=== PATIENT | female | born 1985 | race Two or more races ===

== ENCOUNTER → 2016-09-24 | Outpatient (REF) | payer OTHER ==
[~2016-09-24] MED LIST: /MOXI40TA PO; ACET50TA PO; ALBU1.25 INH; AMOX875T; ARTISOL10; CALCTAB22; CETI10TA PO; EXCETAB; IBUP200C PO; IBUP80TA PO; IPRA2IN INH; PERCOCET PO; PRED10TA2; PRED5TAB; PRENATAL VITAMIN; PROPYLTHIOURACIL; VALT500T; WOMETAB9 PO; [UNRECOGNIZED DRUG - CODE] PO; [UNRECOGNIZED DRUG - REMARK]; prenatal vitamin PO
== END ==
LOC: M LAB REF 10:04
PROVIDERS: ATTEND Physician Assistant
DX: J02.9 Acute pharyngitis, unspecified (principal)

== ENCOUNTER → 2017-08-14 | Outpatient (CLI) | payer OTHER | LOC: M ADAMS 13:13 | DX: M79.645 Pain in left finger(s) (principal) | CPT/HCPCS: 73140 ==

== ENCOUNTER → 2017-10-23 | Outpatient (REF) | payer OTHER ==
[2017-10-23 12:44] LABS: BASO % 0.5 % (0.0-1.0); EOS # 0.2 10^3/uL (0.0-0.50); EOS % 3.1 % (0.0-3.0); HEMATOCRIT 37.9 % (36.0-47.0); HEMOGLOBIN 12.9 g/dl (12.0-15.5); IMMATURE GRANULOCYTE % 0.3 % (0-3.0); LYMPH # 1.3 10^3/uL (1.5-6.5); LYMPH % 21.3 % (24.0-44.0); MEAN CORPUSCULAR HEMOGLOBIN 29.7 pg (27.0-33.0); MEAN CORPUSCULAR VOLUME 87.1 fl (80.0-96.0); MONO # 0.3 10^3/uL (0.0-0.8); MONO % 5.6 % (0.0-5.0); NEUTROPHILS # 4.2 10^3/uL (1.8-7.7); NEUTROPHILS % 69.2 % (36.0-66.0); PLATELET COUNT, AUTOMATED 220 10^3/uL (150-450); RED BLOOD COUNT 4.35 10^6/uL (4.00-5.40); RED CELL DISTRIBUTION WIDTH 12.9 % (11.5-14.5); WHITE BLOOD COUNT 6.1 10^3/uL (4.0-10.0)
[2017-10-23 13:25] LABS: ALBUMIN 3.8 GM/DL (3.2-5.2); ALBUMIN/GLOBULIN RATIO 1.03 (1.00-1.93); ALKALINE PHOSPHATASE 60 U/L (45-117); ALT/SGPT 26 U/L (12-78); ANION GAP 7 MEQ/L (8-16); AST/SGOT 13 U/L (7-37); BILIRUBIN,TOTAL 0.4 MG/DL (0.2-1.0); BLOOD UREA NITROGEN 12 MG/DL (7-18); CALCIUM LEVEL 8.5 MG/DL (8.5-10.1); CARBON DIOXIDE LEVEL 27 MEQ/L (21-32); CHLORIDE LEVEL 108 MEQ/L (98-107); CHOLESTEROL LEVEL 178 MG/DL (<200); CHOLESTEROL RISK RATIO 5.393 (<5); CREATININE FOR GFR 0.57 MG/DL (0.55-1.30); FREE T4 0.88 NG/DL (0.76-1.46); GLOMERULAR FILTRATION RATE > 60.0 (>60); GLUCOSE, FASTING 98 MG/DL (70-100); HDL CHOLESTEROL 33 MG/DL (>40); LDL CHOLESTEROL 108.6 MG/DL (<100); NON-HDL-C 145 MG/DL; SODIUM LEVEL 142 MEQ/L (136-145); TOTAL PROTEIN 7.5 GM/DL (6.4-8.2); TRIGLYCERIDES LEVEL 182 MG/DL (<150)
[2017-10-23 13:43] LABS: TOTAL 25(OH) VITAMIN D 14.1 NG/ML (30.0-100.0)
== END ==
LOC: M SFHCADAM 09:05
DX: E66.01 Morbid (severe) obesity due to excess calories (principal)

== ENCOUNTER → 2018-06-13 | Outpatient (REF) | payer OTHER ==
[~2018-06-13] MED LIST changes: +MAPA500T2 PO
[2018-06-13 13:05] LABS: HIV 1&2 SCREEN CENTAUR NEGATIVE (NEGATIVE)
[2018-06-13 13:42] LABS: CHLAMYDIA DNA AMPLIFICATION NEGATIVE (NEGATIVE); GC DNA AMPLIFICATION NEGATIVE (NEGATIVE)
[2018-06-15 14:22] LABS: HPV HYBRID CAPTURE II Negative (Negative)
== END ==
LOC: M SFHCWAGY 09:16
PROVIDERS: ATTEND Nurse Practitioner Women's Health
DX: Z12.4 Encounter for screening for malignant neoplasm of cervix (principal); Z11.3 Encounter for screening for infections with a predominantly sexual mode of transmission; Z11.4 Encounter for screening for human immunodeficiency virus [HIV]; Z11.51 Encounter for screening for human papillomavirus (HPV)

== ENCOUNTER → 2019-04-16 | Outpatient (REF) | payer OTHER ==
[~2019-04-16] MED LIST changes: -/MOXI40TA PO; -ACET50TA PO; +AVEL1TAB2 PO; +MAPA500T17 PO; +OXYC1TAB23 PO; -PERCOCET PO
== END ==
LOC: M SFHCADAM 10:43
PROVIDERS: ATTEND Physician Assistant Medical
DX: E55.9 Vitamin D deficiency, unspecified (principal)

== ENCOUNTER → 2020-04-01 | Outpatient (REF) | payer OTHER ==
[2020-04-01 14:21] LABS: TOTAL 25(OH) VITAMIN D 16.2 NG/ML (30.0-100.0)
[2020-04-02 15:08] LABS: HEPATITIS B CORE ANTIBODY IGG Negative (Negative); HERPES ZOSTER, VARICELLA IgG 2235 index (Immune >165)
== END ==
LOC: M SFHCADAM 11:02
PROVIDERS: ATTEND Physician Assistant Medical
DX: E55.9 Vitamin D deficiency, unspecified (principal); Z20.828 Contact with and (suspected) exposure to other viral communicable diseases

== ENCOUNTER → 2022-10-12 | Outpatient (REF) | payer OTHER ==
[2022-10-14 17:15] LABS: URINE PREG TEST NEGATIVE (NEGATIVE)
== END ==
LOC: M LAB REF 16:20
PROVIDERS: ATTEND Pediatrics
DX: N92.6 Irregular menstruation, unspecified (principal)

== ENCOUNTER → 2022-10-21 | Outpatient (REF) | payer OTHER ==
[2022-10-21 14:39] LABS: BASO % 0.4 % (0.0-1.0); EOS # 0.3 10^3/uL (0.0-0.5); EOS % 3.2 % (0.0-3.0); HEMATOCRIT 39.6 % (36.0-47.0); HEMOGLOBIN 12.9 g/dl (12.0-15.5); LYMPH % 24.5 % (24.0-44.0); MEAN CORPUSCULAR HEMOGLOBIN 29.5 pg (27.0-33.0); MEAN CORPUSCULAR HGB CONC 32.6 g/dl (32.0-36.5); MEAN CORPUSCULAR VOLUME 90.4 fl (80.0-96.0); MONO # 0.5 10^3/uL (0.0-0.8); MONO % 5.7 % (2.0-8.0); NEUTROPHILS # 5.4 10^3/uL (1.5-8.5); NEUTROPHILS % 64.6 % (36.0-66.0); PLATELET COUNT, AUTOMATED 279 10^3/uL (150-450); RED BLOOD COUNT 4.38 10^6/uL (4.00-5.40); WHITE BLOOD COUNT 8.3 10^3/uL (4.0-10.0)
[2022-10-21 15:04] LABS: HEMOGLOBIN A1c 5.4 % (4.0-6.0)
[2022-10-21 15:06] LABS: CHOLESTEROL RISK RATIO 5.81 (<5); FOLLICLE STIMULATING HORMONE 3.5 mIU/ML; HDL CHOLESTEROL 27.7 MG/DL (>40); LDL CHOLESTEROL 94.7 MG/DL (<100); LUTEINIZING HORMONE 3.3 mIU/ML; NON-HDL-C 133.3 MG/DL; THYROID STIMULATING HORMONE 2.031 uIU/ML (0.55-4.78)
== END ==
LOC: M LAB REF 12:53
PROVIDERS: ATTEND Pediatrics
DX: N92.6 Irregular menstruation, unspecified (principal); E78.5 Hyperlipidemia, unspecified; R73.03 Prediabetes; N92.0 Excessive and frequent menstruation with regular cycle

== ENCOUNTER → 2023-12-15 | Outpatient (REF) | payer OTHER ==
[2023-12-15 13:53] LABS: HEMOGLOBIN A1c 5.5 % (4.0-6.0)
[2023-12-15 13:59] LABS: ALBUMIN 3.8 G/DL (3.2-5.2); ALKALINE PHOSPHATASE 66 U/L (46-116); ALT/SGPT 28 U/L (7.0-40); AST/SGOT 12 U/L (<34); BILIRUBIN,TOTAL 0.5 MG/DL (0.3-1.2); BLOOD UREA NITROGEN 14 MG/DL (9-23); CALCIUM LEVEL 9.2 MG/DL (8.5-10.1); CARBON DIOXIDE LEVEL 25 MMOL/L (20-31); CHLORIDE LEVEL 108 MMOL/L (98-107); CREATININE FOR GFR 0.54 MG/DL (0.55-1.30); GLOMERULAR FILTRATION RATE > 60.0 (>60); GLUCOSE, FASTING 103 MG/DL (60-100); POTASSIUM SERUM 4.5 MMOL/L (3.5-5.1); SODIUM LEVEL 138 MMOL/L (136-145); THYROID STIMULATING HORMONE 2.289 uIU/ML (0.55-4.78); TOTAL PROTEIN 7.5 G/DL (5.7-8.2)
== END ==
LOC: M LAB REF 12:53
PROVIDERS: ATTEND Pediatrics
DX: R73.03 Prediabetes (principal)